=== PATIENT | male | born 1990 | race Two or more races ===

== ENCOUNTER 2020-10-07 00:17 | Inpatient (IN) | payer OTHER ==
[~2020-10-07] VITALS: Ht 172.7 cm; Wt 93.9 kg
[2020-10-07] VITALS (7 sets, daily range): BP systolic 113–126; BP diastolic 70–89
[2020-10-07 02:17] LABS: EOSINOPHILS % 1.7 % (0.0-5.0); HEMATOCRIT. 48.1 % (42.0-52.0); HEMOGLOBIN. 16.6 g/dL (14.0-18.0); LYMPHOCYTES % 41.4 % (20.0-50.0); MEAN CORPUSCULAR HEMOGLOBIN 31.5 pg (28.0-32.0); MEAN CORPUSCULAR VOLUME 91.1 fL (80.0-94.0); MEAN PLATELET VOLUME 7.7 fl (7.4-10.4); MONOCYTES % 9.9 % (2.0-8.0); PLATELET 255 x1000/uL (130-400); RED BLOOD CELL COUNT 5.27 mill/uL (4.7-6.1); RED CELL DISTRIBUTION WIDTH 12.8 % (11.6-14.6)
[2020-10-07 02:24] LABS: CHLORIDE 103 mEq/L (98-107)
[2020-10-07 02:27] LABS: INR 1.1; PROTHROMBIN TIME 11.4 sec (9.6-11.0)
[2020-10-07 02:28] LABS: ETHANOL BLOOD < 10 mg/dL
[2020-10-07] MEDS ORDERED: IOHEXOL-350 100 ML BOTTLE ONE (03:12)
[2020-10-07] MEDS ORDERED: ASPIRIN 325MG EC TABLET PO ONE (03:45)
[2020-10-07 05:23] LABS: CLARITY URINE CLEAR (CLEAR); COLOR URINE YELLOW (YELLOW); KETONES URINE NEGATIVE (NEGATIVE); LEUKOCYTE ESTERASE URINE NEGATIVE (NEGATIVE); NITRITE URINE NEGATIVE (NEGATIVE); OCCULT BLOOD URINE NEGATIVE (NEGATIVE); PH URINE 6.5 (4.5-8.0); PROTEIN URINE NEGATIVE (NEGATIVE); SPECIFIC GRAVITY URINE 1.063 (1.005-1.030)
[2020-10-07 05:37] LABS: *AMPHETAMINES SCREEN URINE NEGATIVE (NEGATIVE); *BARBITURATES SCREEN URINE NEGATIVE (NEGATIVE); *BENZODIAZEPINES SCREEN URINE NEGATIVE (NEGATIVE)
[2020-10-07 05:38] LABS: *COCAINE SCREEN URINE NEGATIVE (NEGATIVE); CANNABINOID URINE SCREEN NEGATIVE (NEGATIVE); METHADONE URINE SCREEN NEGATIVE (NEGATIVE); OPIATES URINE SCREEN NEGATIVE (NEGATIVE); PHENCYCLIDINE URINE SCREEN NEGATIVE (NEGATIVE)
[2020-10-07] MEDS ORDERED: DEXT 5%/0.45% NACL 1000ML 1,000 ML IV SCH (06:30)
[2020-10-07] MEDS ORDERED: GUAIFENESIN 200MG/10ML SUGAR FREE UDC PO PRN (08:30)
[2020-10-07] MEDS ORDERED: MAGNESIUM/ALUMINUM HYDROXIDE/SIMETHICONE 30ML UDC PO PRN (08:30)
[2020-10-07] MEDS ORDERED: HYDROCODONE/ACETAMINOPHEN 5/325MG TABLET PO PRN (08:30)
[2020-10-07] MEDS ORDERED: HYDRALAZINE 20MG/ML VIAL IV PRN (08:30)
[2020-10-07] MEDS ORDERED: ACETAMINOPHEN 325MG TABLET PO PRN (08:30)
[2020-10-07] MEDS ORDERED: MORPHINE SULFATE 2 MG/ML CPJ (NOT FOR IM USE) IV PRN (08:30)
[2020-10-07] MEDS ORDERED: ONDANSETRON HCL 4MG/2ML INJ IV PRN (08:30)
[2020-10-07] MEDS ORDERED: DOCUSATE SODIUM 100MG CAPSULE PO PRN (08:30)
[2020-10-07] MEDS ORDERED: ENOXAPARIN 40MG/0.4ML SYR SUBCUT SCH (08:30)
[2020-10-07] MEDS ORDERED: DIPHENHYDRAMINE 50MG/ML VIAL IV PRN (08:30)
[2020-10-07] MEDS ORDERED: CLONIDINE 0.1MG TABLET PO PRN (08:30)
[2020-10-07] MEDS ORDERED: IPRATROPIUM/ALBUTEROL 0.5-3(2.5)MG/3ML NEB HHN PRN (08:30)
[2020-10-07] MEDS ORDERED: LORAZEPAM 2MG/ML CPJ IV PRN (08:30)
[2020-10-07] MEDS: ENOXAPARIN 30MG/0.3ML SYR SUBCUT SCH ×2 (09:46→21:06)
[2020-10-07] MEDS: POLYVINYL ALCOHOL OPHTH DROPS 15ML BOTHEYE SCH ×3 (13:37→20:10)
[2020-10-07] MEDS: PREDNISONE 20MG TABLET PO SCH ×2 (13:38→21:05)
[2020-10-07] MEDS: ACYCLOVIR 400 MG TABLET PO SCH ×2 (13:38→17:08)
[2020-10-07] MEDS: SODIUM CHLORIDE 0.9% INJ 3ML FLUSH IVF SCH ×2 (13:39→21:34)
[2020-10-07 16:35] LABS: CREATINE KINASE 592 IU/L (39-308)
[2020-10-07 16:37] LABS: CREATINE KINASE MB FRACTION 9.1 ng/mL (0.5-3.6)
[2020-10-07] MEDS ORDERED: ERYTHROMYCIN BASE 0.5% OPHTH OINT 3.5GM LEFTEYE SCH (21:00)
[2020-10-08] VITALS: BP 117/76
[2020-10-08] MEDS: POLYVINYL ALCOHOL OPHTH DROPS 15ML BOTHEYE SCH ×3 (00:12→10:07)
[2020-10-08 00:50] LABS: CREATINE KINASE 473 IU/L (39-308)
[2020-10-08 00:52] LABS: CREATINE KINASE MB FRACTION 6.7 ng/mL (0.5-3.6)
[2020-10-08 04:00] VITALS: BP 114/70
[2020-10-08] MEDS: SODIUM CHLORIDE 0.9% INJ 3ML FLUSH IVF SCH (06:07)
[2020-10-08 06:41] LABS: BASOPHILS % 0.2 % (0.0-2.0); EOSINOPHILS % 0.1 % (0.0-5.0); HEMATOCRIT. 48.6 % (42.0-52.0); HEMOGLOBIN. 16.8 g/dL (14.0-18.0); LYMPHOCYTES % 10.6 % (20.0-50.0); MEAN CORPUSCULAR HEMOGLOBIN 31.6 pg (28.0-32.0); MEAN CORPUSCULAR VOLUME 91.7 fL (80.0-94.0); MEAN PLATELET VOLUME 8.2 fl (7.4-10.4); MONOCYTES % 4.3 % (2.0-8.0); NEUTROPHILS % 84.8 % (40.0-76.0); PLATELET 260 x1000/uL (130-400); RED CELL DISTRIBUTION WIDTH 13.1 % (11.6-14.6)
[2020-10-08 06:43] LABS: CHLORIDE 106 mEq/L (98-107)
[2020-10-08 08:00] VITALS: BP 107/67
[2020-10-08] MEDS: PREDNISONE 20MG TABLET PO SCH (10:05)
[2020-10-08] MEDS: ACYCLOVIR 400 MG TABLET PO SCH (10:05)
[2020-10-08 12:00] VITALS: BP 118/72
[2020-10-08 12:32] VITALS: BP 118/72
== END 2020-10-08 13:00 | disposition home or self-care (01) | DRG 74 ==
LOC: ER 00:17 → 6WST 03:58 → ENRESERV 04:13
PROVIDERS: ADMIT Internal Medicine; ATTEND Internal Medicine
DX: G51.0 Bell's palsy (principal); R74.01 Elevation of levels of liver transaminase levels; Z90.49 Acquired absence of other specified parts of digestive tract
CPT/HCPCS: 36415; 70496; 70498; 71045; 80053; 80305; 80320; 81003; 82550; 82553; 84443; 84484; 85025; 92610; 93005; 99285; J1650; J7512; Q9967; G0480